=== PATIENT | male | born 1945 | race Caucasian/White ===

== ENCOUNTER 2021-01-14 09:54 | Emergency (ER) | payer MEDICARE, OTHER ==
[~2021-01-14 09:54] MED LIST: FLOMAX 0.4 MG0.4 MG PO; NORCO 5-325 TA1 EACH PO; ZOFRAN4 MG SL
[2021-01-14 11:19] LABS: BASOPHIL 0.5 % (0-2); EOSINOPHIL 1.5 % (0-7); HCT 44.7 % (42.0-52.0); HGB 14.9 g/dl (13.2-18.0); LYMPHOCYTE 14.2 % (15-48); MCH 29.2 pg (25.0-31.0); MCHC 33.3 g/dL (32.0-36.0); MCV 87.5 fL (78.0-100.0); MONOCYTE 7.7 % (0-12); MPV 9.4 fL (6.0-9.5); NEUTROPHIL 75.5 % (41-80); NRBC 0; PLT 201 K/uL (150-400); RBC 5.11 M/uL (4.70-6.00); RDW 13.1 % (11.5-14.0); WBC 6.5 K/uL (4.0-10.5)
[2021-01-14 11:25] LABS: CREATININE 0.89 mg/dL (0.67-1.17); POTASSIUM 3.3 mmol/L (3.5-5.1)
== END 2021-01-14 13:23 | disposition left against medical advice (07) ==
LOC: FER 09:54 → FMS 12:11 → FER 13:23
PROVIDERS: Emergency Medicine
DX: U07.1 COVID-19 (principal); J12.82 Pneumonia due to coronavirus disease 2019; R09.02 Hypoxemia; E11.9 Type 2 diabetes mellitus without complications
CPT/HCPCS: 36415; 36600; 71045; 80048; 82803; 85025; 85379; J1100; U0002